=== PATIENT | male | born 2000 | race Caucasian/White ===

== ENCOUNTER 2024-09-26 12:10 | Emergency (ER) | payer OTHER ==
[~2024-09-26] VITALS: Ht 177.8 cm; Wt 66.7 kg
[2024-09-26 12:35] VITALS: BP 109/71; PULSE 62; RESP 18; TEMP 97; O2SAT 98
[2024-09-26 14:01] LABS: BASOPHILS % (AUTO) 0.1 % (0.0-2.0); EOSINOPHILS % (AUTO) 0.2 % (0.0-4.0); HEMATOCRIT 45.7 % (36-52); HEMOGLOBIN 15.7 g/dL (12.0-18.0); LYMPHOCYTES # (AUTO) 1.1 K/uL (2.0-11.5); LYMPHOCYTES % (AUTO) 11.4 % (20.5-51.1); MEAN CORPUSCULAR HEMOGLOBIN 29 pg (27-31); MEAN CORPUSCULAR HGB CONC 35 g/dL (33-37); MEAN CORPUSCULAR VOLUME 84.3 fL (80-94); MONOCYTES # (AUTO) 0.7 K/uL (0.8-1.0); MONOCYTES % (AUTO) 6.9 % (1.7-9.3); NEUTROPHILS % (AUTO) 81.4 % (42.2-75.2); PLATELET COUNT (AUTO) 247 K/uL (140-450); RED BLOOD CELL COUNT(AUTO) 5.42 MIL/uL (4.20-6.10); RED CELL DISTRIBUTION WIDTH 13.5 % (11.6-13.7); WHITE BLOOD COUNT (AUTO) 9.9 K/uL (4.8-10.8)
[2024-09-26 14:05] LABS: APPEARANCE,URINE SL CLOUDY (CLEAR); BILIRUBIN,URINE 1+ (NEGATIVE); BLOOD, URINE 3+ (NEGATIVE); COLOR,URINE BROWN (YELLOW); LEUKOCYTE ESTERASE ,URINE NEGATIVE (NEGATIVE); NITRITE, URINE NEGATIVE (NEGATIVE); PROTEIN,URINE 2+ (NEGATIVE); UGLUCOSE NEGATIVE (NEGATIVE); UROBILINOGEN,URINE 0.2 EU/dL (0.2 - 1)
[2024-09-26 14:14] LABS: BACTERIA,URINE 10-30 (MOD) /HPF (None Seen); RBC,URINE TOO NUMEROUS TO COUN /HPF (0-5); SQUAMOUS EPITHELIAL CELL,UR 0-3 (FEW) /LPF (0-3 (FEW)); WBC,URINE 0-5 /HPF (0-5)
[2024-09-26 14:15] LABS: ICTOTEST NEGATIVE (NEGATIVE)
[2024-09-26 14:20] LABS: ALBUMIN 4.1 g/dL (3.4-5.0); ANION GAP 8.5 (8-16); CALCIUM 9.1 mg/dL (8.5-10.1); CARBON DIOXIDE 33.1 mmol/L (21-32); CREATININE 1.2 mg/dL (0.6-1.3); POTASSIUM 4.6 mmol/L (3.5-5.1); TOTAL BILIRUBIN 0.8 mg/dL (0.0-1.0); TOTAL PROTEIN, SERUM 7.2 g/dL (6.4-8.2)
[2024-09-26] MEDS ORDERED: IBUP-2213 PO (15:33)
[2024-09-26 15:45] VITALS: BP 112/60; PULSE 70; RESP 16; TEMP 97.8; O2SAT 99
== END 2024-09-26 15:45 | disposition home or self-care (01) ==
LOC: MED 12:10
DX: R10.32 Left lower quadrant pain (principal); R31.9 Hematuria, unspecified; R11.2 Nausea with vomiting, unspecified; R39.15 Urgency of urination; R35.0 Frequency of micturition; Z79.899 Other long term (current) drug therapy
CPT/HCPCS: 36415; 74177; 80053; 81001; 83690; 85025; 99285; Q9967